=== PATIENT | male | born 2000 | race African-American/Black ===

== ENCOUNTER 2020-05-11 09:01 | Emergency (ER) | payer BC, SELFPAY ==
--- NOTE | ~2020-05-11 | XR_ITS ---
EXAMINATION: XR chest 2V DATE: 05/11/2020 09:23 INDICATION: Chest pain TECHNIQUE: Frontal and lateral views of the chest are obtained COMPARISON: None available FINDINGS: The lungs are free of acute opacities. There is no pleural effusion or pneumothorax. The ca rdiomediastinal silhouette is normal. The visualized bones and soft tissues are unremarkable. IMPRESSION: 1. No acute cardiopulmonary abnormality. Reviewed, dictated and finalized at location A. NESS PROCESS MANAGER
[2020-05-11 09:02] VITALS: BP 127/86; PULSE 69; RESP 24; TEMP 37.2; O2SAT 98
[2020-05-11 09:08] VITALS: PULSE 83
--- NOTE | 2020-05-11 09:11 | ECG_ITS ---
Measurements Intervals [place] Rate: 68 P: 81 [place]: 121 QRS: -11 QRSD: 97 T: 29 QT: 367 QTc: 392 Interpretive Statements SINUS RHYTHM INCOMPLETE RIGHT BUNDLE BRANCH BLOCK PEAKED T WAVES- CONSIDER ISCHEMIA OR HYPERKALEMIA ABNORMAL ECG Electronically Signed On 05-11-2020 9:34:33 BANKING SUPERVISOR by Homar Velez D.O.
--- NOTE | 2020-05-11 09:11 | ED.CHESTPAIN ---
HPI - Chest Pain General Chief Complaint: Chest Pain Stated Complaint: chest pain Time Seen by Provider: 05/11/20 09:06 Source: patient, EMS, RN notes reviewed and old records reviewed History of Present Illness HPI narrative: 20-year-old male presents to emergency department for left-sided, nonradiating chest pain that started earlier this morning. Patient states it is worse with movement and breathing. He has never had this in the past before. He last took Motrin earlier this morning for the pain. He also reports having a wisdom tooth removed recently. Related Data Home Medications Medication Instructions Recorded Confirmed No Home Medications 05/11/20 05/11/20 Allergies Allergy/AdvReac Type Severity Reaction Status Date / Time No Known Allergies Allergy Verified 05/11/20 09:11 Review of Systems Review of Systems: Narrative: CONSTITUTIONAL: Denies fever, chills, or sweats. EYES: Denies visual changes, redness, or discharge. ENT: Denies rhinorrhea, congestion, sore throat, or otalgia. CARDIOVASCULAR: Denies palpitations, or edema. Reports chest pain RESPIRATORY: Denies cough or dyspnea. GASTROINTESTINAL: Denies abdominal pain, nausea, vomiting, or diarrhea. GENITOURINARY: Denies dysuria or hematuria. SKIN: Denies rash or itching. MUSCULOSKELETAL: Denies back pain, joint pain, or myalgia. NEUROLOGIC: Denies headache, numbness, dizziness, or weakness. PSYCHIATRIC: Denies anxiety or depression. All systems reviewed & are unremarkable except as noted in HPI and below (ROS) PMFSH Social History Social History Gender identity (if verbalized by the patient): Male Exam Narrative: Exam Narrative: GENERAL: Well-appearing, well-nourished, and in no acute distress. HEAD: Normocephalic, atraumatic. EYES: PERRLA and EOMI. ENT: Nares clear, no rhinorrhea or epistaxis. Mucous membranes moist. Healing wound site of left lower wisdom tooth NECK: Supple. CHEST: Clear to auscultation. No respiratory distress. HEART: Regular rate and rhythm. No murmur heard. Normal peripheral pulses. ABDOMEN: Soft, nontender, nondistended, normal active bowel sounds. EXTREMITIES: Normal range of motion. No edema. SKIN: Warm, dry, no rash. NEURO: No focal deficits. Alert and oriented x3. PSYCH: Normal mood and affect. Course Course Emergency Course: 10:00AM -reevaluated patient, pain improved. Low suspicion for ACS at this time. Likely chest wall pain. Counseled patient to follow-up with a medical provider within 1 week. Return to emergency department if symptoms persist, worsen, or other concerns. Vital Signs Vital signs: Vital Signs Temperature 37.2 C 05/11/20 09:02 Pulse Rate 69 05/11/20 09:02 Respiratory Rate 24 H 05/11/20 09:02 Blood Pressure 127/86 05/11/20 09:02 Pulse Oximetry 98 05/11/20 09:02 Temperature 37.2 C 05/11/20 09:02 Pulse Rate 65 05/11/20 10:39 Respiratory Rate 17 05/11/20 10:39 Blood Pressure 122/84 05/11/20 10:39 Pulse Oximetry 99 05/11/20 10:39 MDM - Chest Pain Medical Records Data Attestation: I reviewed the patient's medical records. Imaging Data Attestation: I personally reviewed and interpreted this imaging study as follows: Radiologist's impression: ITS Impressions Chest X-Ray 05/11/20 09:30 IMPRESSION: 1. No acute cardiopulmonary abnormality. ECG Data EKG #1: Attestation: I personally reviewed and interpreted this ECG as follows: (Normal sinus rhythm at 68, normal QRS, normal conduction, nonspecific ST changes?overall nonspecific EKG.) ECG completion date: 05/11/20 ECG completion time: 09:05 Discharge Plan Discharge Clinical Impression: Chest wall pain Patient Disposition: Home, Self-Care Condition: Stable Instructions: Chest Wall Pain (ED) Additional Instructions: 1. Can take Tylenol or Motrin/ibuprofen as needed for pain. Prescriptions: No Actio
[2020-05-11] MEDS: KETOROLAC 30 MG/ML VIAL (*BKC) IV PUSH (09:16)
[2020-05-11 09:55] VITALS: BP 124/79; PULSE 60; RESP 22; O2SAT 98
[2020-05-11 10:39] VITALS: BP 122/84; PULSE 65; RESP 17; O2SAT 99
== END 2020-05-11 10:25 | disposition home or self-care (01) ==
PROVIDERS: Emergency Provider Emergency Medicine
DX: R07.89 Other chest pain (principal); I45.10 Unspecified right bundle-branch block; R94.31 Abnormal electrocardiogram [ECG] [EKG]
CPT/HCPCS: 71046; 93005; 96374; 99284; J1885